=== PATIENT | female | born 1965 | race Caucasian/White ===

== ENCOUNTER 2016-10-10 10:18 | Emergency (ER) | payer OTHER ==
[~2016-10-10] VITALS: Ht 175.3 cm; Wt 90.7 kg
[2016-10-10 10:38] LABS: URINE SOURCE CLEAN CATCH
[2016-10-10 10:42] LABS: URINE APPEARANCE CLOUDY; URINE BILIRUBIN NEG (NEG); URINE BLOOD 4+ (NEG); URINE COLOR YELLOW; URINE GLUCOSE NORM (NORM); URINE KETONE NEG (NEG); URINE LEUKOCYTE ESTERASE 3+ (NEG); URINE NITRATE POS (NEG); URINE PROTEIN 1+ (NEG); URINE SPECIFIC GRAVITY 1.005 (1.003-1.035); URINE UROBILINOGEN NORM (NORM)
[2016-10-10 11:32] LABS: CULTURE INDICATED? YES; URBCS1 AUWI 100-200 /[HPF] (0-2); URINE BACTERIA AUWI 3+ (NEGATIVE); URINE SQUAMOUS EPITHELIAL CELL MODERATE /[HPF]; UWBCS1 AUWI 200-300 (0-5)
[2016-10-10 11:33] LABS: URINE TRANSITIONAL EPI CELLS FEW /[HPF]
[2016-10-12 11:37] LABS: CHLAMYDIA TRACH Not Detected (Not Detected); N GONOR Detected (Not Detected)
== END 2016-10-10 12:00 | disposition home or self-care (01) ==
LOC: CED 10:18 → CFTX 10:18 → CED 11:06 → CFTX 12:00
PROVIDERS: Nurse Practitioner
DX: N39.0 Urinary tract infection, site not specified (principal); L23.7 Allergic contact dermatitis due to plants, except food; Z20.2 Contact with and (suspected) exposure to infections with a predominantly sexual mode of transmission; F17.200 Nicotine dependence, unspecified, uncomplicated; Z90.49 Acquired absence of other specified parts of digestive tract
CPT/HCPCS: 81003; 87086; 87088; 87186; 87491; 87591; 87808; 87905; 96372; 99283; J0696